=== PATIENT | female | born 1950 | race Caucasian/White ===

== ENCOUNTER 2019-01-21 23:16 | Emergency (ER) | payer OTHER ==
[~2019-01-21] VITALS: Ht 160 cm; Wt 68.0 kg
[2019-01-21 23:51] LABS: *BILIRUBIN,URIN NEGATIVE (NEGATIVE); *CLARITY,URINE CLEAR (CLEAR); *COLOR,URINE YELLOW (YELLOW); *KETONES,URINE NEGATIVE (NEGATIVE); *UROBILINOGEN,URINE 0.2 E.U./dl (NORMAL); LEUKOCYTE ESTERASE ,URINE NEGATIVE (NEGATIVE); NITRITE, URINE NEGATIVE (NEGATIVE); UGLUCOSE NEGATIVE (NEGATIVE)
[2019-01-21 23:54] LABS: *BLOOD, URINE TRACE (NEGATIVE)
[2019-01-21 23:57] LABS: BACTERIA,URINE NONE SEEN /HPF (NONE SEEN); RBC,URINE 0-3 /HPF (0-3); SQUAMOUS EPITHELIAL CELL,UR NONE SEEN /HPF (NONE SEEN); WBC,URINE 0-3 /HPF (0-3)
--- NOTE | 2019-01-22 00:07 | NUR ---
Patient discharged to home in stable conditon. Written and verbal after care instructions given. Patient verbalizes understanding of instructions. Ambulated from ER with stable gait. All belongings with patient. VSS
[2019-01-22 00:08] VITALS: BP 137/78
== END 2019-01-22 00:09 | disposition home or self-care (01) ==
LOC: ER 23:16
DX: M54.5 Low back pain (principal); Z88.0 Allergy status to penicillin
CPT/HCPCS: A4663

== ENCOUNTER 2019-02-13 00:08 | Emergency (ER) | payer OTHER ==
[~2019-02-13] VITALS: Ht 160 cm; Wt 68.0 kg
--- NOTE | 2019-02-13 00:20 | NUR ---
pt ambulating with steady gait. A&O x4. c/o left wrist pain while doin push ups tonight. pt. able to move left digits freely. limited left wrist ROM. pulses palpable. per pt pain is aggrevated by movement. no injuries visible. capillary refill <3 sec. pt. breathing even and unlabored, no SOB noted. speech is clear and able to make needs known. denies any / GI distress
--- NOTE | 2019-02-13 00:25 | NUR ---
Dr. Negro at bedside for MSE
--- NOTE | 2019-02-13 00:53 | NUR ---
Patient discharged to home in stable conditon. Written and verbal after care instructions given. Patient verbalizes understanding of instructions. Patient ambulating with steady gait.
[2019-02-13 00:54] VITALS: BP 130/68
== END 2019-02-13 00:52 | disposition home or self-care (01) ==
LOC: ER 00:11
DX: S63.502A Unspecified sprain of left wrist, initial encounter (principal); Z88.0 Allergy status to penicillin; X50.1XXA Overexertion from prolonged static or awkward postures, initial encounter; Y93.89 Activity, other specified; Y92.89 Other specified places as the place of occurrence of the external cause; Y99.8 Other external cause status
CPT/HCPCS: 73110; A4663